=== PATIENT | female | born 1985 | race Caucasian/White ===

== ENCOUNTER 2022-09-22 09:18 | Observation (INO) ==
[2022-09-22] MEDS ORDERED: SODIUM CHLORIDE 0.9% 1000ML 1,000 ML IV ONE (09:37)
[2022-09-22] MEDS ORDERED: KETOROLAC TROMETHAMINE 15 MG/ML VIAL IV ONE (09:37)
--- NOTE | 2022-09-22 09:40 | Emergency Department Note ---
Impression & Plan Renal colic, UTI (urinary tract infection), Hydronephrosis ED Provider Note NAME: DEV WEBBER AGE: 36 SEX: F : 1985 ARRIVES VIA: Walk-In INFORMANT: Patient ED PROVIDER(S): Spike Infante DO CHIEF COMPLAINT: abdominal pain HPI: Patient is a 36-year-old female who presents to the ER for right upper quadrant/right flank pain which started last night around 12 AM. Associated with nausea which has abated. She was unable to go to sleep. Denies any dysuria, urgency, or frequency. No headache or change in vision. No dysuria, urgency, or frequency. Last menstrual period was at the end of July and appropriate timing. Normal bowel movement yesterday. No other exacerbating or remitting factors. PAST MEDICAL HISTORY:See Below PAST SURGICAL HISTORY:See Below FAMILY HISTORY:See Below SOCIAL HISTORY:See Below HOME MEDICATIONS:See Below ALLERGIES:See Below VITALS:See Below PHYSICAL EXAMINATION: GENERAL: Sitting up in bed, alert, well appearing, well nourished, no distress, non-toxic EYE EXAM: normal conjunctiva. OROPHARYNX: mucous membranes are moist LUNGS: Clear to auscultation. Normal chest wall mechanics HEART: no murmurs, S1 normal and S2 normal ABDOMEN: abdomen soft, TTP in RUQ, normo-active bowel sounds, no masses, no rebound or guarding. BACK: Back is symmetrical on inspection and there is no deformity, no midline tenderness, no CVA tenderness. UPPER EXTREMITIES: upper extremities are grossly normal. LOWER EXTREMITIES: No pitting edema. NEURO EXAM: Normal sensorium, cranial nerves II-XII grossly intact, normal speech, no gross weakness of arms, no gross weakness of legs. MEDICAL DECISION MAKING: Patient is a 36-year-old female who presents ER for above-stated complaint. IV was established blood work was obtained. Labs showed no significant leukocytosis or anemia. BMP with slightly elevated chloride at 109. LFTs juany irubin and lipase is unremarkable. UA was positive for nitrates leuks whites and bacteria. CT shows a 6 mm stone with hydro nephrosis and hydroureter. Discussed with urology patient was given IV fluids morphine Toradol and Rocephin. Did discuss with the patient at bedside as she last ate last night and last drank about 2 hours prior to arrival. Discussed with urology and they took her to the OR for stenting. Discussed with the hospitalist for further evaluation treatment and management as well. Patient was updated bedside. Triage Nursing notes reviewed. Limited review of prior medical records performed Vital Signs: reviewed and remarkable for no significant abnormalities Differential diagnosis: Differential diagnoses includes but is not limited to gastritis, peptic ulcer disease, GERD, gallbladder disease, pancreatitis, appendicitis, perforation, trauma, infectious. ER treatment provided: See below Diagnostics interpreted by me include EKG and cardiac monitoring as listed below: -Cardiac Monitoring: An order was placed for continuous cardiac monitoring. The monitor shows a rate of 80 with sinus rhythm. -ECG: none -Laboratory studies:Interpreted by me as stated above in MDM and shown below. Imaging studies: Xrays: As interpreted by me:none CTs show: CT abdomen pelvis per my read shows a large amount of right hydronephrosis CT and pelvis per radiology as described above shows a 6 mm stone Consultation(s): Discussed with Charu from urology who evaluate the patient at bedside and took them to the OR Discussed with Dr. Slava Thompson for further evaluation treatment and management of the infected stone Procedures:none Critical Care: None Past Med/Surg History Medical History (Updated 09/22/22 @ 15:06 by Spike Infante DO) Urinary tract obstruction by kidney stone UTI (urinary tract infection) Surgical History Hx of cholecystectomy Social History (Updated 09/22/22 @ 11:47 by Charu Llanes PA-C) Smoking Status: Former smoker Hx Alcohol Use: Yes (appears heavier use on weekends) Feels Safe at Home: Yes Allergies Allergies Allergy/AdvReac Type Severity Reaction Status Date / Time ciprofloxacin [From Cipro] Allergy Hives Unverified 09/22/22 10:29 sulfamethoxazole Allergy Hives Unverified 09/22/22 10:28 [From Bactrim] Home Meds Home Medications Medication Instructions Recorded Confirmed No Known Home Medications 09/22/22 09/22/22 Results & Data (ED) Vital Signs Vital Signs - 24 hr 09/22/22 09:21 09/22/22 09:58 09/22/22 09:59 Temperature 36.3 C L Temperature Source Temporal Artery Scan Pulse Rate 76 Pulse Rate [Apical] Pulse Rate [Radial] 67 Pulse Rhythm [Apical] Pulse Rhythm [Radial] Pulse Strength [Apical] Pulse Strength [Radial] Respiratory Rate 20 16 Respiratory Effort / Characteristics Non-Labored Non-Labored Respiratory Depth Normal Normal Respiratory Pattern Blood Pressure 140/91 Blood Pressure [Left Arm] 116/82 Blood Pressure Mean 107 Blood Pressure Mean [Left Arm] 93 Blood Pressure Position [Left Arm] Pulse Oximetry 99 99 100 Oxygen Delivery Method Room Air Room Air Room Air Oxygen Flow Rate Sepsis Recent Fever Within 48 Hours No Sepsis New/Unexplained Change in Mental Status N/A Sepsis Action Taken by Nursing No Action Required 09/22/22 12:02 09/22/22 12:32 09/22/22 13:09 Temperature 36.8 C 36 C L Temperature Source Oral Temporal Artery Scan Pulse Rate Pulse Rate [Apical] 100 H Pulse Rate [Radial] 64 Pulse Rhythm [Apical] Regular Pulse Rhythm [Radial] Regular Pulse Strength [Apical] Normal Pulse Strength [Radial] Normal Respiratory Rate 20 14 Respiratory Effort / Characteristics Non-Labored Non-Labored Spontaneous Respiratory Depth Normal Normal Respiratory Pattern Regular Regular Blood Pressure Blood Pressure [Left Arm] 123/74 109/70 Blood Pressure Mean Blood Pressure Mean [Left Arm] 90 83 Blood Pressure Position [Left Arm] Sitting Semi-fowlers Pulse Oximetry 100 100 Oxygen Delivery Method Room Air Room Air Oxymask Oxygen Flow Rate 9 Sepsis Recent Fever Within 48 Hours Sepsis New/Unexplained Change in Mental Status Sepsis Action Taken by Nursing 09/22/22 13:15 09/22/22 13:25 09/22/22 13:35 Temperature Temperature Source Pulse Rate Pulse Rate [Apical] 90 76 76 Pulse Rate [Radial] Pulse Rhythm [Apical] Regular Regular Regular Pulse Rhythm [Radial] Pulse Strength [Apical] Normal Normal Normal Pulse Strength [Radial] Respiratory Rate 14 16 20 Respiratory Effort / Characteristics Non-Labored Spontaneous Non-Labored Spontaneous Non-Labored Spontaneous Respiratory Depth Normal Normal Normal Respiratory Pattern Regular Regular Regular Blood Pressure Blood Pressure [Left Arm] 108/79 126/76 109/67 Blood Pressure Mean Blood Pressure Mean [Left Arm] 88 92 81 Blood Pressure Position [Left Arm] Semi-fowlers Semi-fowlers Semi-fowlers Pulse Oximetry 100 100 98 Oxygen Delivery Method Room Air Room Air Room Air Oxygen Flow Rate Sepsis Recent Fever Within 48 Hours Sepsis New/Unexplained Change in Mental Status Sepsis Action Taken by Nursing 09/22/22 13:45 09/22/22 13:55 09/22/22 14:10 Temperature 36.4 C L Temperature Source Temporal Artery Scan Pulse Rate Pulse Rate [Apical] 94 H 72 63 Pulse Rate [Radial] Pulse Rhythm [Apical] Regular Regular Regular Pulse Rhythm [Radial] Pulse Strength [Apical] Normal Normal Normal Pulse Strength [Radial] Respiratory Rate 16 16 16 Respiratory Effort / Characteristics Non-Labored Spontaneous Non-Labored Spontaneous Non-Labored Spontaneous Respiratory Depth Normal Normal Normal Respiratory Pattern Regular Regular Regular Blood Pressure Blood Pressure [Left Arm] 115/80 129/58 L 129/83 Blood Pressure Mean Blood Pressure Mean [Left Arm] 91 81 98 Blood Pressure Position [Left Arm] Semi-fowlers Semi-fowlers Semi-fowlers Pulse Oximetry 100 100 100 Oxygen Delivery Method Room Air Room Air Room Air Oxygen Flow Rate Sepsis Recent Fever Within 48 Hours Sepsis New/Unexplained Change in Mental Status Sepsis Action Taken by Nursing 09/22/22 14:25 09/22/22 14:40 09/22/22 14:55 Temperature Temperature Source Pulse Rate Pulse Rate [Apical] 76 77 60 Pulse Rate [Radial] Pulse Rhythm [Apical] Regular Regular Regular Pulse Rhythm [Radial] Pulse Strength [Apical] Normal Normal Normal Pulse Strength [Radial] Respiratory Rate 16 18 16 Respiratory Effort / Characteristics Non-Labored Spontaneous Non-Labored Spontaneous Non-Labored Spontaneous Respiratory Depth Normal Normal Normal Respiratory Pattern Regular Regular Regular Blood Pressure Blood Pressure [Left Arm] 117/74 138/65 102/70 Blood Pressure Mean Blood Pressure Mean [Left Arm] 88 89 80 Blood Pressure Position [Left Arm] Semi-fowlers Semi-fowlers Semi-fowlers Pulse Oximetry 98 98 100 Oxygen Delivery Method Room Air Room Air Room Air Oxygen Flow Rate Sepsis Recent Fever Within 48 Hours Sepsis New/Unexplained Change in Mental Status Sepsis Action Taken by Nursing Laboratory Data 09/22/22 09:45 09/22/22 09:45 Lab Results 09/22/22 09/22/22 09/22/22 Range/Units 09:45 09:45 09:52 WBC 8.07 (4.8-10.8) K/ul RBC 4.03 L (4.20-5.40) M/uL Hgb 12.7 (12.0-16.0) g/dl Hct 37.4 (37.0-47.0) % MCV 92.8 (80.0-100.0) fL MCH 31.5 (25.0-34.0) pg MCHC 34.0 (32.0-36.0) g/dL RDW Std Deviation 41.8 (36.4-46.3) fL RDW Coeff of Matti 12.2 (11.5-14.5) % Plt Count 240 (130-400) K/uL MPV 10.4 (9.4-12.4) fL Immature Gran % (Auto) 0.2 % Neut % (Auto) 74.6 % Lymph % (Auto) 16.2 % [place] % (Auto) 7.4 % Eos % (Auto) 0.9 % Baso % (Auto) 0.7 % Neut # (Auto) 6.01 (1.40-6.50) K/uL Lymph # (Auto) 1.31 (1.2-3.4) K/uL [place] # (Auto) 0.60 H (0.11-0.59) K/uL Eos # (Auto) 0.07 (0-0.50) K/uL Baso # (Auto) 0.06 (0-0.2) K/uL Immature Gran # (Auto) 0.02 (0.01-0.20) K/uL Sodium 139 (136-145) mmol/L Potassium 4.5 (3.5-5.1) mmol/L Chloride 109 H (98-107) mmol/L Carbon Dioxide 28 (21-32) mmol/L Anion Gap 2 L (3-11) BUN 14 (6-23) mg/dl Creatinine 0.74 (0.6-1.2) mg/dl Est Cr Clr Drug Dosing 109.2 ml/min Est GFR ( Amer) 120.8 ml/min Est GFR (Non-Af Amer) 104.2 ml/min BUN/Creatinine Ratio 18.9 (10-20) Glucose 91 (70-99(Fasting)) mg/dl Calcium 9.3 (8.5-10.1) mg/dl Total Bilirubin 0.7 (0.2-1.0) mg/dl AST 19 (13-39) U/L ALT 12 (7-52) U/L Alkaline Phosphatase 43 (34-104) U/L Total Protein 6.8 (6.0-8.3) gm/dl Albumin 4.0 (3.4-5.0) gm/dl Globulin 2.8 (2.5-4.0) gm/dl Albumin/Globulin Ratio 1.4 (0.9-2) Lipase 27 (11-82) U/L Urine Color Yellow Urine Appearance Turbid A (Clear) Urine pH 6.0 (4.5-7.5) Ur Specific Bath 1.020 (1.000-1.030) Urine Protein 2+ H (Negative) Urine Glucose (UA) Negative (Negative) Urine Ketones Negative (Negative) Urine Blood 2+ H (Negative) Urine Nitrite Positive A (Negative) Urine Bilirubin Negative (Negative) Urine Urobilinogen Negative (Negative) Ur Leukocyte Esterase 3+ H (Negative) Urine WBC (Auto) >30 H (0-5) /hpf Urine RBC (Auto) 10-30 H (0-4) /hpf U Hyaline Cast (Auto) 1-5 (0-5) /lpf U Epithel Cells (Auto) >30 H (0-5) /lpf Urine Bacteria (Auto) 4+ H (Negative) Urine Yeast Not Reportable POC Ur Test (NEG) SARS-CoV-2, RNA, NAAT (NEGATIVE) 09/22/22 09/22/22 Range/Units 09:58 Unknown WBC (4.8-10.8) K/ul RBC (4.20-5.40) M/uL Hgb (12.0-16.0) g/dl Hct (37.0-47.0) % MCV (80.0-100.0) fL MCH (25.0-34.0) pg MCHC (32.0-36.0) g/dL RDW Std Deviation (36.4-46.3) fL RDW Coeff of Matti (11.5-14.5) % Plt Count (130-400) K/uL MPV (9.4-12.4) fL Immature Gran % (Auto) % Neut % (Auto) % Lymph % (Auto) % [place] % (Auto) % Eos % (Auto) % Baso % (Auto) % Neut # (Auto) (1.40-6.50) K/uL Lymph # (Auto) (1.2-3.4) K/uL [place] # (Auto) (0.11-0.59) K/uL Eos # (Auto) (0-0.50) K/uL Baso # (Auto) (0-0.2) K/uL Immature Gran # (Auto) (0.01-0.20) K/uL Sodium (136-145) mmol/L Potassium (3.5-5.1) mmol/L Chloride (98-107) mmol/L Carbon Dioxide (21-32) mmol/L Anion Gap (3-11) BUN (6-23) mg/dl Creatinine (0.6-1.2) mg/dl Est Cr Clr Drug Dosing ml/min Est GFR ( Amer) ml/min Est GFR (Non-Af Amer) ml/min BUN/Creatinine Ratio (10-20) Glucose (70-99(Fasting)) mg/dl Calcium (8.5-10.1) mg/dl Total Bilirubin (0.2-1.0) mg/dl AST (13-39) U/L ALT (7-52) U/L Alkaline Phosphatase (34-104) U/L Total Protein (6.0-8.3) gm/dl Albumin (3.4-5.0) gm/dl Globulin (2.5-4.0) gm/dl Albumin/Globulin Ratio (0.9-2) Lipase (11-82) U/L Urine Color Urine Appearance (Clear) Urine pH (4.5-7.5) Ur Specific [place] (1.000-1.030) Urine Protein (Negative) Urine Glucose (UA) (Negative) Urine Ketones (Negative) Urine Blood (Negative) Urine Nitrite (Negative) Urine Bilirubin (Negative) Urine Urobilinogen (Negative) Ur Leukocyte Esterase (Negative) Urine WBC (Auto) (0-5) /hpf Urine RBC (Auto) (0-4) /hpf U Hyaline Cast (Auto) (0-5) /lpf U Epithel Cells (Auto) (0-5) /lpf Urine Bacteria (Auto) (Negative) Urine Yeast POC Ur Test NEG (NEG) SARS-CoV-2, RNA, NAAT NEGATIVE (NEGATIVE) Administered Medications Fentanyl Citrate (Fentanyl Citrate 100 Mcg/2 Ml Vial) 25 mcg IV Q5M PRN PRN Reason: PACU Use Only-Pain Stop: 09/22/22 20:32 Last Admin: 09/22/22 14:59 Dose: 25 mcg Documented By: FAVIOLA Discontinued Medications Sodium Chloride (Nss 1000ml) 1,000 mls @ 999 mls/hr IV .Q1H1M ONE Stop: 09/22/22 10:37 Last Admin: 09/22/22 09:47 Dose: 999 mls/hr Documented By: GENESIS Ceftriaxone Sodium (Rocephin) 2,000 mg in 70 mls @ 140 mls/hr IV NOW STA Stop: 09/22/22 11:26 Last Admin: 09/22/22 11:14 Dose: 140 mls/hr Documented By: MERT Ketorolac Tromethamine (Ketorolac Tromethamine 15 Mg/Ml Vial) 15 mg IV NOW ONE Stop: 09/22/22 09:38 Last Admin: 09/22/22 09:45 Dose: 15 mg Documented By: GENESIS Morphine Sulfate (Morphine Sulfate 10 Mg/Ml Carp/Vial) 6 mg IV NOW STA Stop: 09/22/22 10:58 Last Admin: 09/22/22 11:08 Dose: 6 mg Documented By: MERT Imaging Data Radiologist's Impression: Abdomen Fluoroscopy 09/22/22 00:00 FL KUB CLINICAL HISTORY: STENT PLACEMENT COMPARISON STUDY: CT of the abdomen and pelvis September 14, 2022. FLUOROSCOPY TIME: 3 seconds. EXPOSURE DOSE: 0.67 mGy FLUOROSCOPIC IMAGES: 1 FINDINGS: Fluoroscopy was provided during right ureteral stent placement. Proxim al aspect of the stent projects over the right renal pelvis. IMPRESSION: Fluoroscopy provided during right ureteral stent placement. ACT 112: Negative or not required by law. Electronically signed by: Tyrell Hess M.D. 09/22/2022 2:08 PM Abdomen/Pelvis CT 09/22/22 09:37 CT abd pelvis wo con CLINICAL HISTORY: r flank pain TECHNIQUE: Helical axial images of the abdomen and pelvis were obtained. Automated dose lowering techniques and/or adjustment according to patient size were utilized for this exam. This exam was performed without intravenous contrast. CT DOSE: 520.59 mGy.cm COMPARISON: None available at the time of this dictation. FINDINGS: Lower chest: No acute abnormality. Liver: Unremarkable. No focal lesions are seen. Gallbladder and biliary tree: Patient is status post cholecystectomy. No intra- or extrahepatic biliary ductal dilation. Pancreas: Unremarkable, no focal lesions. Spleen: Unremarkable. Adrenals: Unremarkable. Kidneys and ureters: A 6 mm stone is in the right distal ureter with associated hydronephrosis and hydroureter. Bladder: Unremarkable. Reproductive organs: Intrauterine device is noted. Bowel: The appendix is normal. A hiatal hernia is seen. A few diverticula are seen. Lymph nodes Retroperitoneal: Unremarkable. Pelvic: Unremarkable. Mesenteric: Unremarkable. Peritoneum: 2 cystic lesions are seen in the pelvis with calcified ji, nonspecific, may represent peritoneal inclusion cysts. Vessels: Unremarkable. Abdominal wall: Unremarkable. Bones: Degenerative changes in the visualized spine. IMPRESSION: 1. Obstructive right renal stone with associated hydronephrosis and hydroureter. 2. Additional findings as above. ACT 112: Negative or not required by law. Electronically signed by: Sai Chavez M.D. 09/22/2022 10:43 AM Discharge Plan Visit Data Chief Complaint: Abdominal Pain Stated Complaint: ABD PAIN, BACK PAIN ED Provider: Spike Infante Discharge Problem: Renal colic, UTI (urinary tract infection), Hydronephrosis Discharge Instructions Interventions: ED Discharge Assessment Last Done: 09/22/22 12:32
[2022-09-22 10:11] LABS: Appearance Urine Turbid (Clear); Bacteria Urine Automated 4+ (Negative); Bilirubin Urine Negative (Negative); Blood Urine 2+ (Negative); Color Urine Yellow; Epithelial Cell Urine Auto >30 /lpf (0-5); Glucose Urine UA Negative (Negative); Ketones Urine Negative (Negative); Leukocyte Esterase Urine 3+ (Negative); Nitrite Urine Positive (Negative); Protein Urine 2+ (Negative); Urobilinogen Urine Negative (Negative); WBC Urine Automated >30 /hpf (0-5)
[2022-09-22 10:20] LABS: Basophils # (auto) 0.06 K/uL (0-0.2); Basophils % (auto) 0.7 %; Eosinophils # (auto) 0.07 K/uL (0-0.50); Eosinophils % (auto) 0.9 %; Hematocrit (blood only) 37.4 % (37.0-47.0); Hemoglobin 12.7 g/dl (12.0-16.0); Immature Granulocytes # (auto) 0.02 K/uL (0.01-0.20); Immature Granulocytes % (auto) 0.2 %; Lymphocytes # (auto) 1.31 K/uL (1.2-3.4); Lymphocytes % (auto) 16.2 %; Mean Corpuscular Hemoglobin 31.5 pg (25.0-34.0); Mean Corpuscular Volume 92.8 fL (80.0-100.0); Mean Platelet Volume 10.4 fL (9.4-12.4); Monocytes % (auto) 7.4 %; Neutrophils # (auto) 6.01 K/uL (1.40-6.50); Neutrophils % (auto) 74.6 %; Platelet Count 240 K/uL (130-400); RDW Coefficient of Variation 12.2 % (11.5-14.5); RDW Standard Deviation 41.8 fL (36.4-46.3); Red Blood Count 4.03 M/uL (4.20-5.40); White Blood Count 8.07 K/ul (4.8-10.8)
[2022-09-22 10:33] LABS: Albumin Globulin Ratio 1.4 (0.9-2); BUN Creatinine Ratio 18.9 (10-20); Bilirubin,Total 0.7 mg/dl (0.2-1.0); Calcium 9.3 mg/dl (8.5-10.1); Creatinine Clr Calc Pharmacy 109.2 ml/min; Est GFR (African American) 120.8 ml/min; Est GFR (Non-African American) 104.2 ml/min; Globulin 2.8 gm/dl (2.5-4.0); Potassium 4.5 mmol/L (3.5-5.1); Total Protein 6.8 gm/dl (6.0-8.3)
--- NOTE | 2022-09-22 10:45 | CT Scan Report ---
CT abd pelvis wo con CLINICAL HISTORY: r flank pain TECHNIQUE: Helical axial images of the abdomen and pelvis were obtained. Automated dose lowering tech niques and/or adjustment according to patient size were utilized for this exam. This exam was perfor med without intravenous contrast. CT DOSE: 520.59 mGy.cm COMPARISON: None available at the time of this dictation. FINDINGS: Lower chest: No acute abnormality. Liver: Unremarkable. No focal lesions are seen. Gallbladder and biliary tree: Patient is status post cholecystectomy. No intra- or extrahepatic bilia ry ductal dilation. Pancreas: Unremarkable, no focal lesions. Spleen: Unremarkable. Adrenals: Unremarkable. Kidneys and ureters: A 6 mm stone is in the right distal ureter with associated hydronephrosis and hy droureter. Bladder: Unremarkable. Reproductive organs: Intrauterine device is noted. Bowel: The appendix is normal. A hiatal hernia is seen. A few diverticula are seen. Lymph nodes Retroperitoneal: Unremarkable. Pelvic: Unremarkable. Mesenteric: Unremarkable. Peritoneum: 2 cystic lesions are seen in the pelvis with calcified ji, nonspecific, may represent peritoneal inclusion cysts. Vessels: Unremarkable. Abdominal wall: Unremarkable. Bones: Degenerative changes in the visualized spine. IMPRESSION: 1. Obstructive right renal stone with associated hydronephrosis and hydroureter. 2. Additional findings as above. ACT 112: Negative or not required by law. Electronically signed by: Sai Chavez M.D. 09/22/2022 10:43 AM
[2022-09-22] MEDS ORDERED: cefTRIAXone SODIUM 2,000 MG/70 ML BAG IV STA (10:57)
[2022-09-22] MEDS ORDERED: MoRPHine SULFATE 10 MG/ML CARP/VIAL IV STA (10:57)
--- NOTE | 2022-09-22 11:29 | Urology Consultation ---
Date of Consultation September 22, 2022 Assessment & Plan (1) Urinary tract obstruction by kidney stone: (2) UTI (urinary tract infection): 36-year-old female admitted for right flank pain secondary to an obstructing 6 mm right distal ureteral calculus with hydroureteronephrosis and suspected UTI. Patient is afebrile and hemodynamically stable. Lab work reviewed and creatinine and WBC within normal limits. UA suggestive of infection. Urine culture is pending. She was treated with 2 g of ceftriaxone in ED. She is being admitted to hospital medicine service. We discussed options for stone management including observation/trial of passage versus surgical intervention. Discussed concerns for infection in the context of an obstructing stone. Discussed observation overnight. Discussed right ureteral stent placement acutely. Ureteral stents were discussed in detail. We discussed expected clinical course including treatment of stone at a later date after acute infection has been treated. She elects for right ureteral stent placement today. All questions answered. Findings reviewed with Dr. Johnson. Given her renal colic, hydroureteronephrosis, and concern for infection in the context of an obstructing right distal stone, will proceed with OR for cystoscopy, Right retrograde pyelogram and Right stent placement. Risks and benefits to be reviewed with patient by Dr. Johnson. OR notified. Patient received 2g of Ceftriaxone in ED preoperatively. Patient is pending covid test. Keep n.p.o. for procedure. Supervising Physician Co-Signing Physician Notes right ureteral calculus. plan for immediate cystoscopy and right ureteral stent placement. History of Present Illness Reason for Consultation: Right ureteral stone Requesting Physician: Dr. Infante History of Present Illness This is a 36-year-old female who presented to the emergency department on 09/22/2022 with complaint of right flank pain starting around midnight with associated nausea. On arrival to ED, she was afebrile and hemodynamically stable. Lab work ind ependently reviewed. Creatinine 0.74, WBC 8.07, hemoglobin 12.7. Urinalysis notable for 2+ protein, 2+ blood, positive nitrates, 3+ LE, >30 WBC, 10-30 RBC, >30 epithelials, and 4+ bacteria. Urine culture pending. Urine negative. CT abdomen pelvis independently reviewed and notable for an obstructing 6 mm right distal ureteral calculus with moderate right hydroureteronephrosis. ED course included IV fluids, 2 g IV ceftriaxone, morphine, and ketorolac. Urology is consulted for evaluation of right distal ureteral stone. Patient seen and examined in the emergency department. She is awake, alert and resting in litter. at bedside. She reports persistent right flank discomfort, currently rated 5/10 pain. No nausea or vomiting at present. No fever or chills. She is voiding spontaneously without difficulty. No dysuria or hematuria. Last ate yesterday evening, sips of water earlier this morning. No prior stone history. No known family history of stones. No additional concerns today. Allergies Allergy/AdvReac Type Severity Reaction Status Date / Time ciprofloxacin [From Cipro] Allergy Hives Unverified 09/22/22 10:29 sulfamethoxazole Allergy Hives Unverified 09/22/22 10:28 [From Bactrim] Home Medications Medication Instructions Recorded Confirmed Type No Known Home Medications 09/22/22 09/22/22 History Patient History Surgical History (Updated 09/22/22 @ 11:49 by Charu Llanes PA-C) Hx of cholecystectomy Social History (Updated 09/22/22 @ 11:47 by Charu Llanes PA-C) Smoking Status: Former smoker Hx Alcohol Use: Yes (appears heavier use on weekends) Feels Safe at Home: Yes Review of Systems Review of Systems: All systems reviewed & are unremarkable except as noted in HPI & below Physical Exam Constitutional: well developed and well nourished; no acute distress and not ill appearing Eyes: no scleral abnormality Neck: normal visual inspection Respiratory: normal respiratory effort and able to speak in complete sentences; no respiratory distress and no labored breathing Cardiovascular: Extremities: no pedal edema Gastrointestinal (Abdomen): Inspection/Auscultation: abdomen normal to inspection; abdomen not distended Musculoskeletal: Head/Neck/Chest: normocephalic and head atraumatic Neurologic: moves all extremities and awake Psychiatric: Orientation: alert and oriented x 3 Results & Data ([facility]) Vital Signs (Past 12 Hours) Vital Signs Temp Pulse Pulse Resp BP BP Pulse Ox 09/22/22 09:59 67 16 116/82 100 09/22/22 09:58 99 09/22/22 09:21 36.3 C L 76 20 140/91 99 O2 Del Method 09/22/22 09:59 Room Air 09/22/22 09:58 Room Air 09/22/22 09:21 Room Air PG Care Time/CCT Total # of Minutes Spent Total Time Spent with Patient: Total time spent is greater than 50% in coordination of care (as documented) at patient's floor/unit and/or counseling patient: Coding Level of Care Code 83280 IN/OBS CONSULT LVL 3,45M Diagnoses Urinary tract obstruction by kidney stone N20.0; N13.8 UTI (urinary tract infection) N39.0
--- NOTE | 2022-09-22 11:34 | History & Physical Report ---
Date of Service September 22, 2022 Assessment & Plan (1) Urinary tract obstruction by kidney stone: Plan: Reported RUQ/R flank pain w/ nausea/vomiting (hx cholecystectomy) CTAP w/ Obstructive right renal stone with associated hydronephrosis and hydroureter. 6mm stone Kidney function stable at present, afebrile without leukocytosis but appears w/ infected stone/UTI Urology consulted Supportive care: NS @80cc/hr while NPO Antiemetics w/ zofran prn Pain control w/ toradol/morphine prn UA appearing infected, monitor urine cx Continue Rocephin as ordered by ER, 2gm IV daily given obstructing stone w/ hydro DVT prophylaxis: SCDs, encouraged ambulation Discussed w/ Urology PA, and placed orders for flomax HS for tonight as well as prn pyridium/ditropan for ureteral/stent spasms Monitor labs in AM (2) UTI (urinary tract infection): Plan: 2nd to stone urine cx pending continue rocpehin for now/monitor cultures History of Present Illness Chief Complaint: abdominal pain, nausea, vomiting, obstructing kidney stone Primary Care Provider: Surekha Kaye, DO 36yo female presented with RUQ/R flank pain with associated nausea and vomiting and found to have an obstructing stone. Urology was consulted and planning to take to the OR today for intervention/treatment of stone given CTAP w/ obstructive right renal stone with associated hydronephrosis and hydroureter. BUN/Cr stable, WBC w/o leukocytosis. UA appearing infected w/ >30WBC, 3+ leuk esterase, 2+ blood/1-=3-RBC, 4+ bacteria. Was already given Ceftriaxone IV, deferring blood cultures given already received abx. Patient states she has never had kidney stones in the past, developed worsening R flank/back pain last evening. Given toradol but continued pain 4/10 improved w/ morphine. States her urine looks concentrated like she is dehydrated. Seen by [employer] OPERATOR by urology and planning for OR today. Social Hx: She was a prior smoker, does admit to alcohol use on the weekend. No issues when going without drinking for a day or two in the past. Surgical Hx: Cholecystectomy Questions/concerns addressed at this time. To OR when available, remains NPO. Allergies Allergy/AdvReac Type Severity Reaction Status Date / Time ciprofloxacin [From Cipro] Allergy Hives Unverified 09/22/22 10:29 sulfamethoxazole Allergy Hives Unverified 09/22/22 10:28 [From Bactrim] Home Medications Medication Instructions Recorded Confirmed Type No Known Home Medications 09/22/22 09/22/22 History Past Med/Surg History Medical History (Updated 09/22/22 @ 12:34 by Khang Gallegos MD) Urinary tract obstruction by kidney stone UTI (urinary tract infection) Surgical History Hx of cholecystectomy Social History (Updated 09/22/22 @ 11:47 by Charu Llanes PA-C) Smoking Status: Former smoker Hx Alcohol Use: Yes (appears heavier use on weekends) Feels Safe at Home: Yes Review of Systems Review of Systems: All systems reviewed & are unremarkable except as noted in HPI & below Physical Exam Physical Exam: General: WD/WN female sitting up in bed, significant other at bedside, NAD HEENT: head normocephalic, atraumatic, mm slightly dry, trachea midline Resp: CTAB, no w/c, on room air CV: RRR, no m/r/g, no pitting edema GI/: +BS, soft, R flank/R CVA tenderness MSK/Neuro: follows commands, no focal deficit Psych: AOx3, cooperative Results & Data Results & Data ([facility]) Vital Signs (Past 12 Hours) Vital Signs Temp Pulse Pulse Resp BP BP Pulse Ox 09/22/22 09:59 67 16 116/82 100 09/22/22 09:58 99 09/22/22 09:21 36.3 C L 76 20 140/91 99 O2 Del Method 09/22/22 09:59 Room Air 09/22/22 09:58 Room Air 09/22/22 09:21 Room Air Laboratory Results 09/22/22 09/22/22 09/22/22 Range/Units 09:58 09:52 09:45 WBC (4.8-10.8) K/ul RBC (4.20-5.40) M/uL Hgb (12.0-16.0) g/dl Hct (37.0-47.0) % MCV (80.0-100.0) fL MCH (25.0-34.0) pg MCHC (32.0-36.0) g/dL RDW Std Deviation (36.4-46.3) fL RDW Coeff of Matti (11.5-14.5) % Plt Count (130-400) K/uL MPV (9.4-12.4) fL Immature Gran % (Auto) % Neut % (Auto) % Lymph % (Auto) % [place] % (Auto) % Eos % (Auto) % Baso % (Auto) % Neut # (Auto) (1.40-6.50) K/uL Lymph # (Auto) (1.2-3.4) K/uL [place] # (Auto) (0.11-0.59) K/uL Eos # (Auto) (0-0.50) K/uL Baso # (Auto) (0-0.2) K/uL Immature Gran # (Auto) (0.01-0.20) K/uL Sodium 139 (136-145) mmol/L Potassium 4.5 (3.5-5.1) mmol/L Chloride 109 H (98-107) mmol/L Carbon Dioxide 28 (21-32) mmol/L Anion Gap 2 L (3-11) BUN 14 (6-23) mg/dl Creatinine 0.74 (0.6-1.2) mg/dl Est Cr Clr Drug Dosing 109.2 ml/min Est GFR ( Amer) 120.8 ml/min Est GFR (Non-Af Amer) 104.2 ml/min BUN/Creatinine Ratio 18.9 (10-20) Glucose 91 (70-99(Fasting)) mg/dl Calcium 9.3 (8.5-10.1) mg/dl Total Bilirubin 0.7 (0.2-1.0) mg/dl AST 19 (13-39) U/L ALT 12 (7-52) U/L Alkaline Phosphatase 43 (34-104) U/L Total Protein 6.8 (6.0-8.3) gm/dl Albumin 4.0 (3.4-5.0) gm/dl Globulin 2.8 (2.5-4.0) gm/dl Albumin/Globulin Ratio 1.4 (0.9-2) Lipase 27 (11-82) U/L Urine Color Yellow Urine Appearance Turbid A (Clear) Urine pH 6.0 (4.5-7.5) Ur Specific [place] 1.020 (1.000-1.030) Urine Protein 2+ H (Negative) Urine Glucose (UA) Negative (Negative) Urine Ketones Negative (Negative) Urine Blood 2+ H (Negative) Urine Nitrite Positive A (Negative) Urine Bilirubin Negative (Negative) Urine Urobilinogen Negative (Negative) Ur Leukocyte Esterase 3+ H (Negative) Urine WBC (Auto) >30 H (0-5) /hpf Urine RBC (Auto) 10-30 H (0-4) /hpf U Hyaline Cast (Auto) 1-5 (0-5) /lpf U Epithel Cells (Auto) >30 H (0-5) /lpf Urine Bacteria (Auto) 4+ H (Negative) Urine Yeast Not Reportable POC Ur Test NEG (NEG) 09/22/22 Range/Units 09:45 WBC 8.07 (4.8-10.8) K/ul RBC 4.03 L (4.20-5.40) M/uL Hgb 12.7 (12.0-16.0) g/dl Hct 37.4 (37.0-47.0) % MCV 92.8 (80.0-100.0) fL MCH 31.5 (25.0-34.0) pg MCHC 34.0 (32.0-36.0) g/dL RDW Std Deviation 41.8 (36.4-46.3) fL RDW Coeff of Matti 12.2 (11.5-14.5) % Plt Count 240 (130-400) K/uL MPV 10.4 (9.4-12.4) fL Immature Gran % (Auto) 0.2 % Neut % (Auto) 74.6 % Lymph % (Auto) 16.2 % [place] % (Auto) 7.4 % Eos % (Auto) 0.9 % Baso % (Auto) 0.7 % Neut # (Auto) 6.01 (1.40-6.50) K/uL Lymph # (Auto) 1.31 (1.2-3.4) K/uL [place] # (Auto) 0.60 H (0.11-0.59) K/uL Eos # (Auto) 0.07 (0-0.50) K/uL Baso # (Auto) 0.06 (0-0.2) K/uL Immature Gran # (Auto) 0.02 (0.01-0.20) K/uL Sodium (136-145) mmol/L Potassium (3.5-5.1) mmol/L Chloride (98-107) mmol/L Carbon Dioxide (21-32) mmol/L Anion Gap (3-11) BUN (6-23) mg/dl Creatinine (0.6-1.2) mg/dl Est Cr Clr Drug Dosing ml/min Est GFR ( Amer) ml/min Est GFR (Non-Af Amer) ml/min BUN/Creatinine Ratio (10-20) Glucose (70-99(Fasting)) mg/dl Calcium (8.5-10.1) mg/dl Total Bilirubin (0.2-1.0) mg/dl AST (13-39) U/L ALT (7-52) U/L Alkaline Phosphatase (34-104) U/L Total Protein (6.0-8.3) gm/dl Albumin (3.4-5.0) gm/dl Globulin (2.5-4.0) gm/dl Albumin/Globulin Ratio (0.9-2) Lipase (11-82) U/L Urine Color Urine Appearance (Clear) Urine pH (4.5-7.5) Ur Specific [place] (1.000-1.030) Urine Protein (Negative) Urine Glucose (UA) (Negative) Urine Ketones (Negative) Urine Blood (Negative) Urine Nitrite (Negative) Urine Bilirubin (Negative) Urine Urobilinogen (Negative) Ur Leukocyte Esterase (Negative) Urine WBC (Auto) (0-5) /hpf Urine RBC (Auto) (0-4) /hpf U Hyaline Cast (Auto) (0-5) /lpf U Epithel Cells (Auto) (0-5) /lpf Urine Bacteria (Auto) (Negative) Urine Yeast POC Ur Test (NEG) Diagnostic Findings Abdomen/Pelvis CT 09/22/22 09:37 CT abd pelvis wo con CLINICAL HISTORY: r flank pain TECHNIQUE: Helical axial images of the abdomen and pelvis were obtained. Automated dose lowering techniques and/or adjustment according to patient size were utilized for this exam. This exam was performed without intravenous contrast. CT DOSE: 520.59 mGy.cm COMPARISON: None available at the time of this dictation. FINDINGS: Lower chest: No acute abnormality. Liver: Unremarkable. No focal lesions are seen. Gallbladder and biliary tree: Patient is status post cholecystectomy. No intra- or extrahepatic biliary ductal dilation. Pancreas: Unremarkable, no focal lesions. Spleen: Unremarkable. Adrenals: Unremarkable. Kidneys and ureters: A 6 mm stone is in the right distal ureter with associated hydronephrosis and hydroureter. Bladder: Unremarkable. Reproductive organs: Intrauterine device is noted. Bowel: The appendix is normal. A hiatal hernia is seen. A few diverticula are seen. Lymph nodes Retroperitoneal: Unremarkable. Pelvic: Unremarkable. Mesenteric: Unremarkable. Peritoneum: 2 cystic lesions are seen in the pelvis with calcified ji, nonspecific, may represent peritoneal inclusion cysts. Vessels: Unremarkable. Abdominal wall: Unremarkable. Bones: Degenerative changes in the visualized spine. IMPRESSION: 1. Obstructive right renal stone with associated hydronephrosis and hydroureter. 2. Additional findings as above. ACT 112: Negative or not required by law. Electronically signed by: Sai Chavez M.D. 09/22/2022 10:43 AM Supervising Physician Co-Signing Physician Notes I personally saw and examined the patient. I verified all monique points and agree with Charu Llanes PA-C with the following exceptions and/or additions: 36 year old female presents with right-sided renal colic pain and found to have an obstructing stone in the emergency room. She denies any dysuria however urinalysis is concerning for infection. Current severity of pain 10. O/E Nonseptic appearing, alert and orientated x3, HS RRR, no murmurs, Chest CTAB, Abdo SNT, Right CVA tenderness A/P Complicated UTI - urine culture, continue ceftriaxone Obstructing 6 mm stone in right distal ureter -in setting of UTI and hydronephrosis recommend urological intervention for this; planning on taking to the OR today. NPO. Consult urology. PG Care Time/CCT Total # of Minutes Spent Total Time Spent with Patient: Total time spent is greater than 50% in coordination of care (as documented) at patient's floor/unit and/or counseling patient: Coding Level of Care Code 04389 INT INP/OBS CARE 2/55MIN Diagnoses Urinary tract obstruction by kidney stone N20.0; N13.8 UTI (urinary tract infection) N39.0
[2022-09-22] MEDS ORDERED: GLYCOPYRROLATE 0.2 MG/ML VIAL ONE (11:43)
[2022-09-22] MEDS ORDERED: PROPOFOL IV EMULSION 10 MG/ML 20 ML VIAL IV ONE ×2 (11:43→12:56)
[2022-09-22] MEDS ORDERED: ONDANSETRON INJ 2 MG/ML 2 ML VIAL ONE (11:43)
[2022-09-22] MEDS ORDERED: fentaNYL citrate 100 MCG/2 ML VIAL ONE (11:44)
[2022-09-22] MEDS ORDERED: KETAMINE 50 MG/5 ML SYRINGE ONE (11:44)
[2022-09-22] MEDS ORDERED: MIDAZOLAM HCL 1 MG/ML 2ML VIAL ONE (11:44)
[2022-09-22] MEDS ORDERED: ONDANSETRON INJ 2 MG/ML 2 ML VIAL IV PRN ×2 (12:31→15:43)
[2022-09-22] MEDS ORDERED: fentaNYL citrate 100 MCG/2 ML VIAL IV PRN (12:31)
[2022-09-22] MEDS ORDERED: ATROPINE SULFATE 0.1 MG/ML 10ML SYR IV PRN (12:31)
[2022-09-22] MEDS ORDERED: ePHEDrine sulfate 50 MG/ML AMP IV PRN (12:31)
--- NOTE | 2022-09-22 12:34 | Anesthesiology Consultation ---
Date of Service September 22, 2022 Assessment & Plan (1) Encounter for pre-operative examination: Chart Review Chart Review: Acceptable Risk for Surgery and Patient NOT seen in Pre Admission Testing Consults Requested none History Surgery Operation Date: 09/22/22 13:00 Proposed Procedures p Cystoscopy, Retrograde Pyelogram, Ureteral Stent Placement - Right - Markus Johnson MD Height/Weight Height: 5 ft 5 in Weight: 79.1 kg Allergies Allergy/AdvReac Type Severity Reaction Status Date / Time ciprofloxacin [From Cipro] Allergy Hives Unverified 09/22/22 10:29 sulfamethoxazole Allergy Hives Unverified 09/22/22 10:28 [From Bactrim] Medications Home Medications Medication Instructions Recorded Confirmed Last Taken No Known Home Medications 09/22/22 09/22/22 Unknown NPO Date Last Intake of Fluids: 09/22/22 Time Last Intake of Fluids: 04:00 Date Last Intake of Solids: 09/21/22 Time Last Intake of Solids: 19:00 Past Medical History Medical History (Updated 09/22/22 @ 12:34 by Khang Gallegos MD) Urinary tract obstruction by kidney stone UTI (urinary tract infection) Past Surgical History Surgical History Hx of cholecystectomy Social History Smoking Status: Former smoker Hx Alcohol Use: Yes (appears heavier use on weekends) Physical Exam Vital Signs Last Vital Signs Temp 36.8 C 09/22/22 12:02 Pulse 64 09/22/22 12:02 Resp 20 09/22/22 12:02 BP 123/74 09/22/22 12:02 Pulse Ox 100 09/22/22 12:02 O2 Del Method Room Air 09/22/22 12:02 Testing Laboratory Results 09/22/22 09:45 09/22/22 09:45 Urine Color Yellow 09/22/22 09:52 Urine Appearance Turbid (Clear) A 09/22/22 09:52 Urine pH 6.0 (4.5-7.5) 09/22/22 09:52 Ur Specific [place] 1.020 (1.000-1.030) 09/22/22 09:52 Urine Protein 2+ (Negative) H 09/22/22 09:52 Urine Glucose (UA) Negative (Negative) 09/22/22 09:52 Urine Ketones Negative (Negative) 09/22/22 09:52 Urine Nitrite Positive (Negative) A 09/22/22 09:52 Ur Leukocyte Esterase 3+ (Negative) H 09/22/22 09:52 Urine WBC (Auto) >30 /hpf (0-5) H 09/22/22 09:52 Urine RBC (Auto) 10-30 /hpf (0-4) H 09/22/22 09:52 U Hyaline Cast (Auto) 1-5 /lpf (0-5) 09/22/22 09:52 U Epithel Cells (Auto) >30 /lpf (0-5) H 09/22/22 09:52 Urine Bacteria (Auto) 4+ (Negative) H 09/22/22 09:52 09/22/22 09:58 POC Ur Test NEG
--- NOTE | 2022-09-22 13:04 | Operative Report ---
PG Post Operative Report Pre & Post Diagnosis Operation Date: 09/22/22 13:00 <No data on this case meets the specified criteria> I identified the patient and participated in the time-out.: Yes Procedure Operation Date: 09/22/22 13:00 <No data on this case meets the specified criteria> Surgeon Markus Johnson MD Property Utilization Officer none Estimated Blood Loss 0 Findings Consistent with Post-Op Diagnosis Specimens None Description of Procedure The patient was identified in the preoperative holding area, appropriate informed consents were reviewed and completed and the patient was transferred to the operative suite. Upon arrival, appropriate antibiotics and anesthesia were administered and the patient was placed in dorsal lithotomy position and prepped and draped in sterile fashion. 20 Angolan cystoscope with 30 degree lens per inspection revealed healthy appearing bladder, she does have some very minor cystitis cystica consistent with chronic infections. No tumors or other abnormalities. Ureteral orifices were in orthotopic position. Return my attention to the right UO and cannulated with a sensor wire and a 5 Angolan open-ended catheter. The wire advanced the kidney without difficulty. I then placed a 6 Angolan by 24 cm double-J ureteral stent seeing good curl in the kidney as well as the bladder. Bladder was decompressed and the case concluded. She was reversed of anesthesia and taken to the recovery room in stable condition. There were no complications. I attest to the content of the Intraoperative Record and any orders documented therein. Any exceptions are noted below.
--- NOTE | 2022-09-22 13:57 | Anesthesiology Progress Note ---
Date of Service September 22, 2022 Anesthesia Post Procedure Vital Signs Vital Signs: Temp Pulse Pulse Pulse Resp BP BP 09/22/22 13:45 94 H 16 115/80 09/22/22 13:35 76 20 109/67 09/22/22 13:25 76 16 126/76 09/22/22 13:15 90 14 108/79 09/22/22 13:09 36 C L 100 H 14 109/70 09/22/22 12:32 09/22/22 12:02 36.8 C 64 20 123/74 09/22/22 09:59 67 16 116/82 09/22/22 09:58 09/22/22 09:21 36.3 C L 76 20 140/91 Pulse Ox O2 Del Method O2 Flow Rate 09/22/22 13:45 100 Room Air 09/22/22 13:35 98 Room Air 09/22/22 13:25 100 Room Air 09/22/22 13:15 100 Room Air 09/22/22 13:09 100 Oxymask 9 09/22/22 12:32 Room Air 09/22/22 12:02 100 Room Air 09/22/22 09:59 100 Room Air 09/22/22 09:58 99 Room Air 09/22/22 09:21 99 Room Air Pain Intensity Right Abdomen: Pain Intensity: 5 Right Flank: Pain Intensity: 5 Transfer of Care Handoff Completed per policy Notes Mental Status: alert / awake / arousable and participated in evaluation Patient Amnestic to Procedure: Yes Nausea / Vomiting: adequately controlled Pain: adequately controlled Airway Patency, RR, SpO2: stable & adequate BP & HR: stable & adequate Hydration State: stable & adequate Anesthetic Complications: no major complications apparent and Pt Satisfied with anesthetic care
--- NOTE | 2022-09-22 14:09 | Fluoroscopy Report ---
FL KUB CLINICAL HISTORY: STENT PLACEMENT COMPARISON STUDY: CT of the abdomen and pelvis September 14, 2022. FLUOROSCOPY TIME: 3 seconds. EXPOSURE DOSE: 0.67 mGy FLUOROSCOPIC IMAGES: 1 FINDINGS: Fluoroscopy was provided during right ureteral stent placement. Proximal aspect of the sten t projects over the right renal pelvis. IMPRESSION: Fluoroscopy provided during right ureteral stent placement. ACT 112: Negative or not required by law. Electronically signed by: Tyrell Hess M.D. 09/22/2022 2:08 PM
[2022-09-22] MEDS ORDERED: KETOROLAC TROMETHAMINE 15 MG/ML VIAL IV PRN (15:43)
[2022-09-22] MEDS ORDERED: OXYBUTYNIN CHLORIDE 5 MG TAB PO PRN (15:43)
[2022-09-22] MEDS ORDERED: PHENAZOPYRIDINE HCL 100 MG TAB PO PRN (15:43)
[2022-09-22] MEDS ORDERED: ACETAMINOPHEN 325 MG TAB PO PRN (15:43)
[2022-09-22] MEDS: SODIUM CHLORIDE 0.9% 1000ML 1,000 ML IV SCH (17:36)
[2022-09-22] MEDS: MoRPHine SULFATE 4 MG/ML 1 ML CARP\\VIAL IV PRN ×2 (19:39→23:43)
[2022-09-22] MEDS ORDERED: TAMSULOSIN HCL 0.4 MG CAP PO SCH (21:00)
[2022-09-22] MEDS: ACETAMINOPHEN 500 MG TAB PO PRN (23:42)
[2022-09-23] MEDS: SODIUM CHLORIDE 0.9% 1000ML 1,000 ML IV SCH (06:16)
[2022-09-23 07:38] LABS: Basophils # (auto) 0.05 K/uL (0-0.2); Basophils % (auto) 0.8 %; Eosinophils # (auto) 0.09 K/uL (0-0.50); Eosinophils % (auto) 1.5 %; Hematocrit (blood only) 34.1 % (37.0-47.0); Hemoglobin 11.4 g/dl (12.0-16.0); Immature Granulocytes # (auto) 0.01 K/uL (0.01-0.20); Immature Granulocytes % (auto) 0.2 %; Lymphocytes # (auto) 1.53 K/uL (1.2-3.4); Lymphocytes % (auto) 24.8 %; Mean Corpuscular Hemoglobin 31.6 pg (25.0-34.0); Mean Corpuscular Hgb Conc 33.4 g/dL (32.0-36.0); Mean Corpuscular Volume 94.5 fL (80.0-100.0); Mean Platelet Volume 10.2 fL (9.4-12.4); Monocytes # (auto) 0.54 K/uL (0.11-0.59); Monocytes % (auto) 8.8 %; Neutrophils # (auto) 3.95 K/uL (1.40-6.50); Neutrophils % (auto) 63.9 %; Platelet Count 186 K/uL (130-400); RDW Coefficient of Variation 12.2 % (11.5-14.5); RDW Standard Deviation 42.6 fL (36.4-46.3); Red Blood Count 3.61 M/uL (4.20-5.40); White Blood Count 6.17 K/ul (4.8-10.8)
[2022-09-23 07:58] LABS: BUN Creatinine Ratio 11.1 (10-20); Calcium 8.5 mg/dl (8.5-10.1); Creatinine Clr Calc Pharmacy 112.4 ml/min; Est GFR (African American) 124.9 ml/min; Est GFR (Non-African American) 107.7 ml/min; Magnesium 1.9 mg/dl (1.7-2.4); Potassium 4.2 mmol/L (3.5-5.1)
[2022-09-23] MEDS: ACETAMINOPHEN 500 MG TAB PO PRN (08:56)
[2022-09-23] MEDS: MoRPHine SULFATE 4 MG/ML 1 ML CARP\\VIAL IV PRN (08:56)
--- NOTE | 2022-09-23 09:00 | Urology Progress Note ---
Date of Service September 23, 2022 Assessment & Plan (1) Right ureteral calculus: (2) UTI (urinary tract infection): (3) Hydronephrosis: Plan: - Pt POD#1 s/p cystoscopy and right ureteral stent placement - Doing well, progressing as expected - Afebrile, lab work reviewed - creatinine 0.72, WBC 6.17 - Urine culture prelim >100k cfu gram negative bacilli - Notes some bother with right ureteral stent - Okay to d/c from perspective when medically stable - Recommend d/c with course of PO antibiotics, Tamsulosin, prn Pyridium and Oxybutynin, and prn pain medication for stent management - Expected clinical course reviewed, all questions answered - Will arrange outpatient follow-up with our service for definitive stone management - will sign off, please contact our service with any additional questions/concerns Admission and Anticipated Discharge Date Admission Date: September 22, 2022 Subjective Patient seen and examined at bedside this AM. She is awake, alert and sitting up in bed eating breakfast. No acute issues overnight. Reports right flank discomfort. Tolerating diet, no nausea or vomiting. Voiding spontaneously, n otes hematuria postoperatively, starting to clear. No fever or chills. Review of Systems Constitutional: as per Subjective / HPI Gastrointestinal: as per Subjective / HPI Genitourinary: as per Subjective / HPI Physical Exam Constitutional: well developed and well nourished; no acute distress and not ill appearing Respiratory: normal respiratory effort and able to speak in complete sentences; no respiratory distress and no labored breathing Cardiovascular: Extremities: no pedal edema Gastrointestinal (Abdomen): Inspection/Auscultation: abdomen normal to inspection; abdomen not distended Musculoskeletal: Head/Neck/Chest: normocephalic and head atraumatic Neurologic: moves all extremities and awake Psychiatric: Orientation: alert and oriented x 3 Results & Data ([facility]) Vital Signs (Past 12 Hours) Vital Signs Temp Pulse Resp BP Pulse Ox O2 Del Method 09/23/22 08:48 36.7 C 80 20 113/75 100 Room Air 09/23/22 04:00 36.6 C 78 16 90/50 L 97 Room Air 09/22/22 21:33 36.7 C 60 18 122/81 99 Room Air PG Care Time/CCT Total # of Minutes Spent Total Time Spent with Patient: Total time spent is greater than 50% in coordination of care (as documented) at patient's floor/unit and/or counseling patient: Coding Level of Care Code 22529 SUB INP/OBS CARE Diagnoses Right ureteral calculus N20.1 UTI (urinary tract infection) N39.0 Hydronephrosis N13.30
[2022-09-23] MEDS ORDERED: KETOROLAC TROMETHAMINE 15 MG/ML VIAL IV ONE (11:18)
--- NOTE | 2022-09-23 11:26 | Hospitalist Progress Note ---
Date of Service September 23, 2022 Assessment & Plan (1) Urinary tract obstruction by kidney stone: Plan: Admitted on account of RUQ/R flank pain w/ nausea/vomiting CTAP w/ Obstructive right renal stone with associated hydronephrosis and hydroureter. 6mm stone She is now POD#1 s/p cystoscopy and right ureteral stent placement Appreciate Urology Will continue pain management, empiric antibiotics, Oxybutynin , Tamsulosin, Pyridium Follow up Urology Outpatient (2) UTI (urinary tract infection): Plan: 2nd to stone urine cx pending continue rocpehin for now/monitor cultures Plan Continue hospitalization, hopefully d/c in the next 24 hrs Admission and Anticipated Discharge Date Admission Date: September 22, 2022 Subjective patient seen and examined, still complaining of right flank pain Review of Systems Review of Systems: All systems reviewed are negative, apart from the ones contained in the history. Physical Exam Physical Exam: The patient is awake, alert and oriented 3, well developed and well nourished, normocephalic and atraumatic, lying in bed and in no acute distress. HEENT--PERRL, EOMI, mucous membranes and oropharynx mildly dry Neck--supple. No JVD. No bruits. Thyroid normal, trachea midline, no adenopathy. Heart--normal S1 and S2. No murmurs, rubs or gallops. Lungs--clear bilaterally, no respiratory distress, no accessory muscle use. Abdomen--normal bowel sounds and soft. Mild epigastric and left sided abdominal pain Extremities--no cyanosis or clubbing. No edema. Dermatologic--normal skin turgor, normal color, no abnormal lymph nodes, no rash. Neurologic--cranial nerves II through XII grossly intact. Rheumatologic--normal range of motion. Psychiatric--normal affect. Results & Data Results & Data ([facility]) Vital Signs (Past 12 Hours) Vital Signs Temp Pulse Resp BP Pulse Ox O2 Del Method 09/23/22 08:56 Room Air 09/23/22 08:48 98.1 F 80 20 113/75 100 Room Air 09/23/22 04:00 97.9 F 78 16 90/50 L 97 Room Air PG Care Time/CCT Total # of Minutes Spent Total Time Spent with Patient: Total time spent is greater than 50% in coordination of care (as documented) at patient's floor/unit and/or counseling patient: Coding Level of Care Code 37565 SUB INP/OBS CARE 235MIN Diagnoses Urinary tract obstruction by kidney stone N20.0; N13.8 UTI (urinary tract infection) N39.0 Time Spent (min) 35
[2022-09-23] MEDS ORDERED: cefTRIAXone SODIUM 2,000 MG in DEXTROSE 5% 50 ML IV SCH (11:45)
--- NOTE | 2022-09-23 13:42 | Discharge Summary ---
Date of Service September 23, 2022 Admission HPI Per Admitting Provider 36yo female presented with RUQ/R flank pain with associated nausea and vomiting and found to have an obstructing stone. Urology was consulted and planning to take to the OR today for intervention/treatment of stone given CTAP w/ obstructive right renal stone with associated hydronephrosis and hydroureter. BUN/Cr stable, WBC w/o leukocytosis. UA appearing infected w/ >30WBC, 3+ leuk esterase, 2+ blood/1-=3-RBC, 4+ bacteria. Was already given Ceftriaxone IV, deferring blood cultures given already received abx. Patient states she has never had kidney stones in the past, developed worsening R flank/back pain last evening. Given toradol but continued pain 11/02 improved w/ morphine. States her urine looks concentrated like she is dehydrated. Seen by [employer] by urology and planning for OR today. Social Hx: She was a prior smoker, does admit to alcohol use on the weekend. No issues when going without drinking for a day or two in the past. Surgical Hx: Cholecystectomy Principal Diagnosis renal stone, UTI Discharge Exam The patient is awake, alert and oriented 3, well developed and well nourished, normocephalic and atraumatic, lying in bed and in no acute distress. HEENT--PERRL, EOMI, mucous membranes and oropharynx mildly dry Neck--supple. No JVD. No bruits. Thyroid normal, trachea midline, no adeno cielo. Heart--normal S1 and S2. No murmurs, rubs or gallops. Lungs--clear bilaterally, no respiratory distress, no accessory muscle use. Abdomen--normal bowel sounds and soft. Mild epigastric and left sided abdominal pain Extremities--no cyanosis or clubbing. No edema. Dermatologic--normal skin turgor, normal color, no abnormal lymph nodes, no rash. Neurologic--cranial nerves II through XII grossly intact. Rheumatologic--normal range of motion. Psychiatric--normal affect. Discharge Data Allergies Allergy/AdvReac Type Severity Reaction Status Date / Time ciprofloxacin [From Cipro] Allergy Hives Unverified 09/22/22 10:29 sulfamethoxazole Allergy Hives Unverified 09/22/22 10:28 [From Bactrim] Consultations 09/22/22 11:25 ED Decision to Admit Stat 09/22/22 15:43 Consult Urology Routine Procedures Performed Operation Date: 09/22/22 13:00 Actual Procedures p Cystoscopy, Right Ureteral Stent Placement(Right) - Markus Johnson MD Ordered Studies 09/22/22 [place] KUB Routine 09/22/22 09:37 CT stones [CT abd pelvis wo con] Stat Hospital Course (1) Urinary tract obstruction by kidney stone: Admitted on account of RUQ/R flank pain w/ nausea/vomiting CTAP w/ Obstructive right renal stone with associated hydronephrosis and hydroureter. 6mm stone She is now POD#1 s/p cystoscopy and right ureteral stent placement Appreciate Urology Will continue pain management, empiric antibiotics, Oxybutynin , Tamsulosin, Pyridium Follow up Urology Outpatient (2) UTI (urinary tract infection): 2nd to stone urine cx pending continue rocpehin for now/monitor cultures Plan Continue hospitalization, hopefully d/c in the next 24 hrs Total Time Total Time Spent Total Time Spent (In Minutes): 35 Discharge Plan Discharge Items Patient Disposition: Home - Self-Care Reason For Visit: ABD PAIN, BACK PAIN Discharge Diagnosis: Kidney stone, UTI Activity: Resume your previous activity Non-emergency contact: Primary Care Provider and Urologist Call non-emergency contact if: you have any medication questions and your symptoms worsen Follow-up/Referrals: PCP,NO [Physician] - Diet: Regular Addtl Attending Provider Instructions: Please make appointment to follow up with your Urologist in 1 week Pending Studies at Discharge: No Stand-Alone Forms: [employer], Smoking Cessation Medications and DC Order Prescriptions: New tamsulosin 0.4 mg Capsule 0.4 mg PO HS 10 Days Qty: 10 0RF phenazopyridine [Pyridium] 100 mg Tablet 100 mg PO TID PRN (Reason: pain) 10 Days Qty: 30 0RF oxybutynin chloride 5 mg Tablet 5 mg PO BID PRN (Reason: bladder spasms) 10 Days Qty: 20 0RF cephalexin 500 mg capsule 500 mg PO BID 7 Days Qty: 14 0RF Discharge Orders: Discharge Order (Routine); Ordered 09/23/22 Ordered By: Cathleen Brito Admission Data Admit Date/Time: 09/22/22 12:31 Attending Provider: Cathleen Britoit Provider: Slava Thompson Primary Care Provider: Surekha Kaye Other Providers: Slava Thompson ; Markus Johnson Coding Level of Care Code 64891 INP/OBS DISCH >30 MIN Diagnoses Urinary tract obstruction by kidney stone N20.0; N13.8 UTI (urinary tract infection) N39.0 Time Spent (min) 35
== END 2022-09-23 15:00 | disposition home or self-care (01) ==
LOC: ED 09:18 → OR 12:30 → SUATTDRO 12:31 → PACUINP 12:31 → INTOOBSV 12:31 → 3W 12:32